=== PATIENT | male | born 1985 | race American Indian/Alaskan Native ===

== ENCOUNTER 2016-08-02 09:56 | Emergency (ER) | payer BC, OTHER ==
[2016-08-02 10:10] VITALS: BP 136/84; PULSE 81; RESP 18; TEMP 98.7; O2SAT 98; BMI 48.8
[2016-08-02] MEDS ORDERED: Naproxen 550 mg Tab PO STA (10:12)
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
== END 2016-08-02 13:17 | disposition home or self-care (01) ==
LOC: ED 09:56
DX: S56.811A Strain of other muscles, fascia and tendons at forearm level, right arm, initial encounter (principal); S86.812A Strain of other muscle(s) and tendon(s) at lower leg level, left leg, initial encounter; S76.012A Strain of muscle, fascia and tendon of left hip, initial encounter; V49.49XA Driver injured in collision with other motor vehicles in traffic accident, initial encounter; Y92.410 Unspecified street and highway as the place of occurrence of the external cause